=== PATIENT | female | born 1985 | race Caucasian/White ===

== ENCOUNTER 2018-07-08 16:39 | Emergency (ER) | payer MEDICAID ==
[2018-07-08] MEDS ORDERED: NS 1,000 ML IV ONE (16:55)
--- NOTE | 2018-07-08 16:55 | EDPHY ---
H & P Time Seen by Provider: 07/08/18 16:48 HPI/ROS: CHIEF COMPLAINT: Vomiting, dizziness HISTORY OF PRESENT ILLNESS: 32-year-old female with bulimia and morbid obesity presents with vomiting and dizziness. She fainted 2 days ago, secondary to dehydration and repeated purging. Onset of intermittent mild headaches, nausea and dizziness after the syncopal episode. The dizziness occurs when she stands up quickly and resolves when she sits down. The headache is mild and intermittent. Unsure if she hit her head. No recurrent syncopal episodes. Self-induced vomiting x2 today and then [facility]. She continues to have nausea now. Concern for electrolyte abn, sent to ED for eval. No headache now. REVIEW OF SYSTEMS: complete 10 point ROS reviewed and is negative except for the noted elements in the HPI - Medical/Surgical History PMH: Bulimia Morbid obesity Hx Asthma: No Hx Chronic Respiratory Disease: No Hx Diabetes: No Hx Cardiac Disease: No Hx Renal Disease: No Hx Cirrhosis: No Hx Alcoholism: No Hx HIV/AIDS: No Hx Splenectomy or Spleen Trauma: No - Social History Smoking Status: Never smoked Alcohol Use: Sober Drug Use: None Additional Social History: single - Physical Exam Exam: General Appearance: Alert, pleasant, speaks softly Eyes: Pupils equal and round, no conjunctival pallor ENT, Mouth: Mucous membranes moist Neck: Normal inspection, no midline tenderness, range of motion without pain Respiratory: Lungs are clear to auscultation Cardiovascular: Regular rate and rhythm Gastrointestinal: Abdomen is soft and nontender Neurological: Alert, oriented x3, cranial nerves II through XII intact, motor 5 /5, sensory grossly intact Skin: Warm and dry Extremities: Normal inspection Psychiatric: Mood and affect normal Constitutional: Initial Vital Signs Temperature (C) 37.1 C 07/08/18 16:51 Heart Rate 79 07/08/18 16:51 Respiratory Rate 16 07/08/18 16:51 Blood Pressure 158/66 H 07/08/18 16:51 O2 Sat (%) 97 07/08/18 16:51 O2 Delivery Mode Room Air Allergies/Adverse Reactions: No Known Allergies Allergy (Unverified 07/08/18 17:19) Home Medications: Medication Instructions Recorded ARIPiprazole 07/08/18 DULoxetine 07/08/18 Famotidine 07/08/18 Gabapentin 07/08/18 Lisinopril 07/08/18 Omeprazole 07/08/18 Ondansetron Odt [Zofran Odt 4 mg 4 mg PO Q4 PRN #6 tab 07/08/18 (*)] TOPIRAMATE 07/08/18 Medical Decision Making ED Course/Re-evaluation: IV normal saline 1 L Zofran 4 mg IV given. Feels much better after IV fluids and Zofran. Nausea has resolved. Abdomen remained soft and nontender. Laboratory results are unremarkable and were discussed with the patient. Will discharge home with a prescription for Zofran. Will follow up at the [facility]. Differential Diagnosis: 1. Clear liquids for 24 hours. 2. Advance diet as tolerated. I suggest the BRAT diet to start: bananas, rice, applesauce and toast. 3. Return for worsening symptoms, persistent vomiting, abdominal pain, any concerns. - Data Points Laboratory Results: Laboratory Results 07/08/18 17:58 07/08/18 17:58 Medications Given: Discontinued Medications Sodium Chloride (Ns) 1,000 mls @ 0 mls/hr IV ONCE ONE PRN Reason: Wide Open Stop: 07/08/18 16:56 Last Admin: 07/08/18 18:01 Dose: 1,000 mls Ondansetron HCl (Zofran) 4 mg IVP EDNOW ONE Stop: 07/08/18 17:14 Last Admin: 07/08/18 18:01 Dose: 4 mg Departure - Departure Disposition: Home, Routine, Self-Care Clinical Impression: Dehydration Vomiting Qualifiers: Vomiting type: associated with bulimia nervosa Nausea presence: with nausea Qualified Code(s): F50.2 - Bulimia nervosa Condition: Good Instructions: Dehydration (ED), Acute Nausea and Vomiting (ED) Additional Instructions: 1. Clear liquids for 24 hours. 2. Advance diet as tolerated. I suggest the BRAT diet to start: bananas, rice, applesauce and toast. 3. Return for worsening symptoms, persistent vomiting, abdominal pain, any concerns. Referrals: [facility],. [Clinic] - As per Instructions Prescriptions: Ondansetron Odt [Zofran Odt 4 mg (*)] 4 mg PO Q4 PRN #6 tab PRN Reason: Nausea
[2018-07-08] MEDS ORDERED: ONDANSETRON 4 MG/2 ML VIAL IVP ONE (17:13)
--- NOTE | 2018-07-08 17:28 | CPEKG ---
Test Reason : OPEN Blood Pressure : / mmHG Vent. Rate : 073 BPM Atrial Rate : 074 BPM P-R Int : 135 ms QRS Dur : 084 ms QT Int : 367 ms P-R-T Axes : -22 049 016 degrees QTc Int : 405 ms Sinus rhythm Confirmed by Elinor Warren ([id number]) on 07/08/2018 5:27:20 PM Referred By: Elinor Warren Confirmed By:Elinor Warren
[2018-07-08 18:07] LABS: PLATELET COUNT 267 10^3/uL (150-400)
[2018-07-08 19:16] VITALS: BP 146/56
== END 2018-07-08 19:16 | disposition home or self-care (01) ==
DX: F50.2 Bulimia nervosa (principal); E86.0 Dehydration
CPT/HCPCS: 96374; J2405